=== PATIENT | male | born 1960 | race Caucasian/White ===

== ENCOUNTER 2023-05-19 15:47 | Emergency (ER) | payer BC, SELFPAY ==
[2023-05-19 15:49] VITALS: BP 178/102; PULSE 91; RESP 16; TEMP 36.7; O2SAT 98; BMI 23.7
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
--- NOTE | 2023-05-19 16:04 | PC.NURSE ---
tetanus found UTD this december
[2023-05-19 17:25] VITALS: BP 177/100; PULSE 91; RESP 18; O2SAT 100
== END 2023-05-19 17:35 | disposition home or self-care (01) ==
PROVIDERS: Emergency Provider Emergency Medicine
DX: Z77.21 Contact with and (suspected) exposure to potentially hazardous body fluids (principal); E11.9 Type 2 diabetes mellitus without complications; I10 Essential (primary) hypertension; E78.5 Hyperlipidemia, unspecified; Z79.4 Long term (current) use of insulin
CPT/HCPCS: 36415; 80048; 80076; 85025; 86704; 86706; 86803; 87340; 87389; 99283; 99284